=== PATIENT | female | born 1985 | race Caucasian/White ===

== ENCOUNTER 2021-12-17 11:50 | Emergency (ER) | payer MEDICAID, SELFPAY ==
[2021-12-17 12:03] VITALS: BP 110/72; PULSE 92; RESP 18; TEMP 37.3; O2SAT 99
--- NOTE | 2021-12-17 12:22 | PDOC.ERCMPRO ---
- If Service Date Differs Date of service: 12/17/21 Time of Service: 12:23 Care Management Progress Note SBIRT screen negative. Pt reports no substance use or mental health symptoms.
--- NOTE | 2021-12-17 12:36 | ED.GENADUL_ITS ---
Discharge Plan Disposition Patient Disposition: HOME Condition: Stable Discharge Details Clinical Impression: Lumbago with sciatica, right side Primary Care Provider: Claribel Soriano ED Provider: Niki Araujo Home Meds and New Rx's Prescriptions: Continued valacyclovir 500 mg tablet 500 mg PO DAILY Label Comments: TAKE 1 TABLET BY MOUTH ONCE DAILY omeprazole 40 mg capsule,delayed release(DR/EC) 40 mg PO DAILY Label Comments: TAKE 1 CAPSULE BY MOUTH ONCE DAILY Discharge Instructions Instructions: Low Back Strain (ED), Lower Back Exercises (ED) Additional Instructions: Alternate ice and heat. Please practice good body mechanics try not to bend at the waist if possible. Please take Tylenol or Ibuprofen with food every 4-6 hours as needed for pain and swelling. Please discuss with your primary care provider further imaging such as CT or MRI if they feel it is warranted. Be seen sooner for any loss of bowel or bladder control, inability to move your leg, numbness to your groin area. Stand Alone Forms: Work Release Referrals: Claribel Soriano [Primary Care Provider] - 1 week Discharge Data Discharge Date/Time-TO BE ENTERED AT DEPARTURE: 12/17/21 13:39 Medical Decision Making August 36-year-old female presents to the ER chief complaint of lower back pain for 2 weeks after jumping at a trampoline park and feeling a pop in a pool. Patient has been seen by her PCP in [place] and has had recent x-rays per patient report couple weeks ago. Imaging not ordered due to recent x-rays. I did discuss follow-up with PCP and red flags with patient who verbalized understanding. She has no signs or symptoms of a cauda equina at this time. I did offer physical therapy referral which patient declined at this time I did also offer her a work note which patient declined. Lidocaine patch, Toradol, Norflex IM ordered. Medical Records Medical records reviewed: Yes I reviewed the patient's medical records. HPI General Mode of arrival: ambulatory . Date/Time Provider Initiated Documentation: 12/17/21 12:34 . Limitations to Documentation: no limitations . Information obtained by: patient, RN notes reviewed and old records reviewed . HPI Narrative: August 36-year-old female presents to the ER chief complaint of lower back pain for 2 weeks after jumping at a trampoline park and feeling a pop in a pool. Patient has been seen by her PCP in [place] and has had recent x-rays per patient report couple weeks ago. She is also been told that she has constipation. She denies any red flags such as loss of bowel or bladder control, numbness tingling, saddle anesthesia reports no feeling as if she needs to urinate or have a bowel movement but cannot. She reports that she has had 3 bowel movements today. She has been taking Tylenol and ibuprofen with little to no relief. She reports she has been offered physical therapy which she declined. Patient is unsure of her allergies she denies being allergic to ketorolac or Toradol or any muscle relaxers. Related Data Home Medications Medication Instructions Recorded Confirmed omeprazole 40 mg capsule,delayed 40 mg PO DAILY 12/17/21 12/17/21 release valacyclovir 500 mg tablet 500 mg PO DAILY 12/17/21 12/17/21 General Stated Complaint: Nk/Back Pain TAL: 4 Review of Systems Musculoskeletal Musculoskeletal: Reports as per HPI, Reports back pain, Denies atrophy, Denies muscle weakness, Denies numbness, Reports radiating pain into limb (Radiates into her right buttock denies radiation any lower) and Reports stiffness Comments: Reports pain with lifting her right leg no foot drop no gross motor Neurologic Neurologic: Reports as per HPI, Denies localized weakness and Denies numbness PFSH All Active Problems (Updated 12/17/21 @ 13:18 by Niki Araujo NP) Lumbago with sciatica, right side (Acute) Social History Smoking/Tobacco Use Status: Never Smoking risk assessment performed?: Yes Alcohol Intake: never Drug use: Never Substance use type: does not use Do you feel safe at home: Yes Do you feel safe in your relationship?: Yes Exam Back/Spine/Pelvis Back: no CVA tenderness Cervical Spine: normal cervical lordosis Thoracic/Lumbar Spine: thoracic and lumbar spine normal to inspection, No kyphosis, lumbar spinal tenderness, straight leg raise positive and other (Paraspinous tenderness noted gluteal tenderness with palpation) Pelvis: no pain with anterior-posterior compression Course Vital Signs Vital signs: Vital Signs Temperature 37.3 C 12/17/21 12:03 Pulse 92 H 12/17/21 12:03 Respiratory Rate 18 12/17/21 12:03 Blood Pressure 110/72 12/17/21 12:03 Pulse Oximetry 99 12/17/21 12:03 Temperature 37.3 C 12/17/21 12:03 Temperature Source Temporal Artery Scan 12/17/21 12:03 Pulse 92 H 12/17/21 12:03 Respiratory Rate 18 12/17/21 12:03 Respiratory Effort Non-Labored 12/17/21 12:07 Blood Pressure 110/72 12/17/21 12:03 Blood Pressure Position Sitting 12/17/21 12:03 Pulse Oximetry 99 12/17/21 12:03 Oxygen Delivery Method Room Air 12/17/21 12:03 Oxygen Flow Rate 0 12/17/21 12:03
[2021-12-17] MEDS: Ketorolac 60 MG/2 ML VIAL IM (13:27)
[2021-12-17] MEDS: Lidocaine 5% Patch 1 PATCH TP (13:28)
== END 2021-12-17 13:39 | disposition home or self-care (01) ==
PROVIDERS: Emergency Provider Registered Nurse Emergency; PCP Internal Medicine
DX: M54.41 Lumbago with sciatica, right side (principal)
CPT/HCPCS: 96372; 99284; 99283; J1885

== ENCOUNTER 2023-08-25 02:57 | Outpatient (CLI) | payer MEDICAID, SELFPAY ==
--- NOTE | 2023-08-28 21:44 | PDOC.EEG_ITS ---
Neurology EEG EEG: [facility] Department of Neurology LONG-TERM AMBULATORY EEG REPORT Date of Recordin08/25/23 at 10:29:42 to 08/26/23 at 11:14:10 Interpreting Physician: Dr. Emilee Townsend PCP/Referring Provider: Tania SHINE Reason for study: Kaylen is a 38 year-old with new onset seizures. Current Medications: Home Medications Medication Instructions Recorded Confirmed Type omeprazole 40 mg capsule,delayed 40 mg PO DAILY 12/17/21 08/08/23 History release valacyclovir 500 mg tablet 500 mg PO DAILY 12/17/21 08/08/23 History levetiracetam 500 mg tablet 500 mg PO BID #180 tabs 08/08/23 08/08/23 Rx METHODS: An 18-channel digitized electroencephalogram was recorded in the ambulatory setting with video. The 10/20 international system of electrode placement was used and bipolar and referential electrode montages were recorded. In addition to EEG the patient was monitored for EKG and by video. Activation procedures of photic stimulation and hyperventilation were performed if applicable. The duration of the recording was ~25 hours. DESCRIPTION OF EEG: Waking background activity: During maximal wakefulness a 9-Hz posterior background rhythm was present which was well-modulated, symmetrical, reactive to eye opening, and of moderate voltage. Faster frequencies were present in the bilateral anterior head regions. There was a normal anterior-posterior voltage gradient. Drowsy and sleeping background activity: During drowsiness, there was attenuation of the posterior dominant background rhythm and vertex waves. Normal stage II and III sleep was present with symmetrical sleep spindles, K- complexes, and vertex waves with slowing of the background rhythm to delta/theta frequencies. REM sleep manifested by rapid lateral eye movements and faster background rhythms was recorded. Arousal was unremarkable. Interictal abnormalities: none. Ictal findings: No events captured. Activating Procedures: Photic stimulation was performed which produced a symmetrical posterior driving response at various flash frequencies. Hyperventilation was performed with moderate effort and produced no physiological slowing of the background. EKG: EKG revealed normal sinus rhythm. INTERPRETATION: This long-term EEG is normal during the awake and sleep states as well as during the activation procedures. PRIOR EEG: none CLINICAL CORRELATION: No focal regions of cerebral dysfunction or epileptiform activity was present. Epilepsy remains a clinical diagnosis and a normal EEG does not rule out epilepsy. Clinical correlation is advised. Emilee Townsend MD Date of service: 08/25/23
== END 2023-08-25 02:58 | disposition home or self-care (01) ==
LOC: RT 02:57
PROVIDERS: PCP Internal Medicine; Visit Provider Psychiatry & Neurology Neurology
DX: R68.89 Other general symptoms and signs (principal)
CPT/HCPCS: 95714; 95720